=== PATIENT | female | born 1965 | race Two or more races ===

== ENCOUNTER 2025-04-14 10:29 | Emergency (ER) | payer MEDICAID, SELFPAY ==
[2025-04-14 10:30] VITALS: BMI 33.6
[2025-04-14 10:57] VITALS: BP 132/93; PULSE 85; RESP 17; TEMP 36.8; O2SAT 97
--- NOTE | 2025-04-14 11:10 | EDNOTE_ITS ---
<Statement entered by Violeta Brenner MD - 04/15/25 07:10> As co-signing physician, I was present and available for consult prn. I concur with the plan and care as documented by the midlevel provider. ED General RME/HPI General Chief complaint: General Adult/Misc Complain Stated complaint: HIGH BLOOD SUGAR, FRENCH, NAUSEA Time Seen by Provider: 04/14/25 11:09 Arrival date/time: 04/14/25 10:29 CC: Mild fatigue elevated blood sugar patient was referred to the ER via primary care provider at the [facility] for elevated blood glucose. The patient states she is semicompliant with her medication secondary to no insurance. Patient is awake alert oriented nontoxic-appearing not in any acute distress with only complaint of mild fatigue. Patient denies pain painful urination bloody urination chest pain shortness of breath difficulty breathing or fever. Related Data Allergies Allergy/AdvReac Type Severity Reaction Status Date / Time NKA* Allergy Uncoded 04/14/25 10:33 Review of Systems Review of Systems Narrative Review of Systems: GEN: No fever, no chills, no weight loss EYES: No discharge, no visual changes, no pain HEENT: No ear pain, no congestion, no sore throat PULM: No shortness of breath, no cough, no congestion CV: No chest pain, no dyspnea on exertion, no palpitations GI: No nausea, no vomiting, no diarrhea, no pain, no constipation : No frequency, no urgency, no dysuria MUSC/SKEL: No joint pain, no back pain SKIN: No rash PSYCH: No hallucinations, no depression HEME/LYMPH: No easy bleeding or bruising tendencies NEURO: No weakness, no headache Past Medical History Social History SMOKING STATUS: Never smoker ED Exam Narrative Physical exam: [General: Not in any acute distress Head normocephalic HEENT: Eyes pupils are PERRLA EOMs are intact nose no rhinorrhea mouth pink moist membranes uvula is midline swallow symmetrical phonation is normal. All the subsystems of ATTR within acceptable limits Neck is supple nontender Chest equal chest rise nontender to palpation Respiratory: Clear to auscultation no wheezes crackles or rubs CV: Rate rhythm is regular no murmurs rubs or clicks Abdomen is distended secondary to body habitus soft nontender no masses positive bowel sounds all 4 quadrants Back: No CVA tenderness no spinous process tenderness from cervical spine thoracic and lumbar spine Skin: Intact no petechiae rash induration ulceration or crepitus Extremities: Moving all extremity against resistance cap refill less than 2 seconds neurosensory intact Neuro: Awake alert oriented x3 Glascow coma 15 no focal deficits] Course Quality Measures none Orders Category Date Time Status CBC Stat Lab 04/14/25 11:18 Completed CMP [Comprehensive Metabolic Panel] Stat Lab 04/14/25 11:18 Completed Lipase Stat Lab 04/14/25 11:18 Completed Urinalysis, C/S if Indicated Stat Lab 04/14/25 12:15 Completed Insulin Regular Med 04/14/25 13:56 Once 5 unit SC X1 ONE Vital Signs Vital signs: Vital Signs Temperature 98.2 F 04/14/25 10:57 Pulse Rate 85 04/14/25 10:57 Respiratory Rate 17 04/14/25 10:57 Blood Pressure 132/93 H 04/14/25 10:57 Pulse Oximetry (%) 97 04/14/25 10:57 Oxygen Delivery Method Room Air 04/14/25 10:57 Discharge Plan Plan Patient Disposition: HOME (Self Care) Patient condition on transfer: Stable Prescriptions/Referrals Referrals: Reynaldo Trinh MD [Primary Care Provider] - In 1 week Problem List Clinical Impression: Hyperglycemia Patient/Caregiver Discharge Instructions Other Activity Instructions:: Talk promptly to your primary care provider regarding your elevated liver enzymes consider change out of your medications manage sure diabetes as best you can if there is a worsening of symptoms return the emergency room for reevaluation. Education Materials: ED Diabetes with High Blood Sugar Print Language: Azeri Stand Alone Forms: Johanna Award Info., Work/School Release, Patient Portal Info Letter PA/FIELD ASSEMBLY SUPERVISOR Supervising Physician PA/FIELD ASSEMBLY SUPERVISOR Supervising Physician: Rocael Amos ENP MDM Clinical Information Provided by patient Medical Records Reviewed [facility] Meds/Rx Considered, not Ordered None Labs/Rad/Tests considered, not Ordered None Chronic Illness/Social Conditions Add or document further as needed: Diabetes EKG EKG not done Lab Interpretation Lab(s) interpretation(s): CBC shows no leukocytosis anemia thrombocytopenia CMP shows a glucose elevated at 318 no other electrolyte imbalances or renal Dale patient also noted to have transaminitis AST of 94 ALT 224 alk phos of 143 T. bili is normal. Urine shows 4+ glucose rare bacteria no leukocyte esterase no WBCs. Imaging Imaging interpretation: none Radiology reports / interpretation(s): I suspect this patient has transaminitis secondary to switching over to an injectable to manage her diabetes I encouraged her to follow-up with her primary care provider regarding changing her medications even though she just changed to an injectable from metformin. Dispositon Disposition: Discharge Home
[2025-04-14 11:48] LABS: Basophils # (Auto) 0.0 Thou/mm3 (0.0-0.2); Basophils % (Auto) 1 % (0-2.5); Eosinophils # (Auto) 0.1 Thou/mm3 (0.0-0.5); Eosinophils % (Auto) 1 % (0-10); Hematocrit 41.2 % (36.0-46.0); Hemoglobin 13.7 g/dL (12.0-16.0); Immature Granulocytes Auto 0.02 Thou/mm3 (0.00-0.00); Lymphocytes # (Auto) 1.7 Thou/mm3 (1.0-4.8); Lymphocytes % (Auto) 26 % (10-50); Mean Corpuscular HGB Conc 33.3 g/dl (31.0-37.0); Mean Corpuscular Hemoglobin 30.2 pg (25.0-35.0); Mean Corpuscular Volume 91 fL (80-100); Monocytes # (Auto) 0.6 Thou/mm3 (0.0-0.8); Monocytes % (Auto) 9 % (0-12); Neutrophils # (Auto) 4.0 Thou/mm3 (1.8-7.7); Neutrophils % (Auto) 63 % (37-80); Nucleated Red Blood Cell # 0.00 Thou/mm3 (0.00-0.00); Nucleated Red Blood Cell % 0 /100 WBC (0); Platelet Count 259 Thou/mm3 (140-440); RDW Standard Deviation 41.4 fL (36.4-46.3); Red Blood Count 4.54 Miln/mm3 (4.00-5.20); White Blood Count 6.3 Thou/mm3 (3.6-11.0)
[2025-04-14 12:06] LABS: Alanine Aminotransferase 224 U/L (10-49); Albumin, Serum 4.2 gm/dL (3.5-5.0); Albumin/Globulin Ratio 1.5 (1.2-2.2); Alkaline Phosphatase 143 U/L (46-116); Anion Gap 9 (7-16); Aspartate Amino Transferase 94 U/L (0-34); BUN/Creatinine Ratio 10 Ratio (12-20); Bilirubin,Total 0.5 mg/dL (0.3-1.2); Blood Urea Nitrogen 8 mg/dL (9-23); Calcium 9.5 mg/dL (8.3-10.6); Calcium (Corrected) 9.5 mg/dL (8.5-10.1); Carbon Dioxide 25.3 mMol/L (20.0-31.0); Chloride 103 mMol/L (98-107); Creatinine (Component) 0.8 mg/dL (0.6-1.3); Estimated Creatinine Clearance 77.7 mL/min (>60); Globulin 2.8 gm/dL (2.3-3.5); Glucose 318 mg/dL (74-106); Osmolality,Calculated 284 (275-295); Potassium 4.3 mMol/L (3.4-5.1); Sodium 137 mMol/L (136-145); Total Protein 7.0 gm/dL (5.7-8.2); eGFR > 60 See Note
[2025-04-14 12:38] LABS: Collection Type, Urine Clean Catch
[2025-04-14 12:51] LABS: Lipase 37 U/L (12-53)
[2025-04-14 13:05] LABS: Bacteria,Urine Rare; Bilirubin,Urine Negative (Negative); Blood,Urine Negative (Negative); Clarity,Urine Clear (Clear/Hazy); Color,Urine Lt-Yellow (Lt Yel-Yel); Culture Indicated,Urine Not Indicated; Glucose, Urine 4+ (Negative); Ketones,Urine Negative (Negative); Leukocyte Esterase,Urine Negative (Negative); Nitrite,Urine Negative (Negative); PH,Urine 5.5 (5.0-7.0); Protein,Urine Negative (Neg - Trace); RBC,Urine 1 /hpf (0-3); Specific Gravity,Urine 1.040 (1.001-1.035); Squamous Epithelial Cell,Urine 1 /hpf (0-5); Urobilinogen,Urine Negative mg/dL (0.0-1.0); WBC,Urine 2 /hpf (0-5)
[2025-04-14] MEDS: INSULIN HUM REGULAR 1 UNIT/0.01 ML (PER UNIT) 5 UNIT SC (14:57)
== END 2025-04-14 15:23 | disposition home or self-care (01) ==
PROVIDERS: Registered Nurse General Practice; Emergency Provider Emergency Medicine; PCP Family Medicine
DX: E11.65 Type 2 diabetes mellitus with hyperglycemia (principal); R74.8 Abnormal levels of other serum enzymes; R74.01 Elevation of levels of liver transaminase levels; Z59.71 Insufficient health insurance coverage
CPT/HCPCS: 36415; 80053; 81001; 83690; 85025; 99283; J1815